=== PATIENT | male | born 1955 | race African-American/Black ===

== ENCOUNTER 2018-08-13 15:39 | Observation (INO) ==
--- NOTE | 2018-08-13 17:44 | ED ---
HPI General Chief Complaint: Chest Pain Stated Complaint: chest pain Time Seen by Provider: 08/13/18 17:18 Source: patient Mode of arrival: ambulatory Limitations: no limitations History of Present Illness HPI narrative: 62-year-old male with history of nonischemic cardiomyopathy with EF 20%, atrial fibrillation, history of PE, CHF, Bipolar disorder, asthma presents to the emergency department for evaluation of chest pain that started last night. Patient says that he had pain near his "left titty" last night while he was at home. He described it as "sticky pain". Says he took 81 mg aspirin and Aleve and the pain resolved. He denies associated shortness of breath, nausea, vomiting or diarrhea. He says that he has not followed up with auto rental clerk in 3 months because he was released from skilled nursing 3 months ago. He says he last saw a auto rental clerk in [place] in October 2017 where he had a stress test and echocardiogram. He does not know the results of this. He says he has been compliant with his Coumadin which was checked 3 months ago. He comes in today B is concerned about the chest pain that he had last night. He says that he is on oxygen 24 hours a day 2 L a minute. MD complaint: Reports chest pain Onset (ago): hour(s) Duration: improved Onset: during rest Pain location: Reports left chest Severity: moderate Pain radiation: Reports none Relieving factors: medication-other Exacerbating factors: nothing Related Data Home Medications Medication Instructions Recorded Confirmed Klkinsey-Con Sprinkle 10 meq PO DAILY 08/13/18 08/13/18 Lasix 20 mg PO DAILY 08/13/18 08/13/18 albuterol sulfate 2.5 mg INHALATION Q4H PRN 08/13/18 08/13/18 albuterol sulfate [ProAir HFA] 2 puff INHALATION Q6H PRN 08/13/18 08/13/18 apixaban [Eliquis] 5 mg PO BID 08/13/18 08/13/18 aspirin 81 mg PO DAILY 08/13/18 08/13/18 carvedilol 6.25 mg PO BID 08/13/18 08/13/18 cetirizine 10 mg PO DAILY 08/13/18 08/13/18 citalopram 20 mg PO DAILY 08/13/18 08/13/18 digoxin 0.125 mg PO DAILY 08/13/18 08/13/18 fluticasone-salmeterol [Advair 250 mg INHALATION 08/13/18 Diskus] hydrocodone-acetaminophen 1 tab PO Q4H 08/13/18 08/13/18 hydroxyzine HCl 50 mg PO TID-QID PRN 08/13/18 08/13/18 levofloxacin 500 mg PO DAILY 08/13/18 08/13/18 levothyroxine 50 mcg PO DAILY 08/13/18 08/13/18 perphenazine 16 mg PO HS 08/13/18 08/13/18 simvastatin 5 mg PO QPM 08/13/18 08/13/18 Allergies Allergy/AdvReac Type Severity Reaction Status Date / Time penicillin G Allergy Severe Edema, Verified 08/13/18 18:03 Generalized Review of Systems ROS: all other systems reviewed are negative [facility] Medical History Medical History CHF (congestive heart failure) (Acute) Cardiac defibrillator in place (Acute) Chronic back pain (Acute) Hypertension (Acute) Myocardial infarction acute (Acute) Pacemaker (Acute) Stroke (Acute) Social History Social History Smoking Status: Never smoker How Often Do You Have a Drink Containing Alcohol: 2 to 3 times a week Recent Travel in [facility] within the Last 8 Weeks: No Recent Out of Country Travel within the Last 8 Weeks: No Exam Narrative Exam Narrative: GENERAL: Well-developed, well-nourished, poorly articulate SKIN: Focused skin assessment warm/dry. HEAD: Atraumatic. Normocephalic. EYES: Pupils equal and round. No scleral icterus. No injection or drainage. ENT: No nasal bleeding or discharge. Mucous membranes pink and moist. NECK: Trachea midline. No JVD. No lymphadenopathy CARDIOVASCULAR: Regular rate and rhythm. No murmur appreciated. RESPIRATORY: No accessory muscle use. Clear to auscultation. Breath sounds equal bilaterally. GASTROINTESTINAL: Abdomen soft, non-tender, nondistended. Hepatic and splenic margins not palpable. MUSCULOSKELETAL: No obvious deformities. No clubbing. No cyanosis. No edema. No tenderness to palpation of the calves NEUROLOGICAL: Awake and alert. No obvious cranial nerve deficits. Motor grossly within normal limits. Normal speech. PSYCHIATRIC: Appropriate mood and affect; insight and judgment normal. Course Initial Documented Vital Signs Temperature 98.2 F 08/13/18 15:54 Pulse Rate 88 08/13/18 15:54 Respiratory Rate 22 08/13/18 15:54 Blood Pressure 135/83 08/13/18 15:54 Pulse Oximetry 95 08/13/18 15:54 Last Documented Vital Signs Temperature 98.2 F 08/13/18 15:54 Pulse Rate 88 08/13/18 15:54 Respiratory Rate 22 08/13/18 15:54 Blood Pressure 135/83 08/13/18 15:54 Pulse Oximetry 95 08/13/18 18:20 Medical Decision Making GREGORY Attestation GREGORY supervised visit: Yes Attestation: I, Dr. Nickerson, have reviewed the advance practice practitioner's documentation and am in agreement, met with the patient face to face, made the diagnosis, and the medical decision making was done by me. *My assessment and Findings: Patient is a 62-year-old male with history of ischemic cardiomyopathy, hypertension, presents the emergency room with complaints of chest pain. Patient reports that he had 2 episodes, one episode last night while he was watching TV and eating chicken strips and another today when he was at the [employer]. Patient reports that chest pain is sharp and stabbing in nature, reports that is located his left chest, patient is concerned as he has heart disease and does not have follow-up. Patient reports that he was supposed to follow-up with auto rental clerk on [facility], reports that he was placed in skilled nursing for a month and now his auto rental clerk will not follow-up with him. Patient currently chest pain-free. Plan for cardiac workup and observation to the chest pain unit MDM Narrative Medical decision making narrative: 62-year-old male, poor historian and poorly articulate presents to the emergency department for evaluation of chest pain that he had last night and today. He says that he took a baby aspirin and Aleve and his chest pain resolved. He denies shortness of breath associated with his chest pain. He does not currently have a urologist and states he has not seen a auto rental clerk in 3 months. He states compliance with his medication to include warfarin. Vital signs are stable. EKG shows sinus rhythm rate 80 without STEMI changes. INR 1.0, inconsistent with patient's history. Patient likely has been noncompliant with his medication. Troponin less than 0.02, BUN/creatinine 25/1.36 (stable from 2015). Based off a history and physical, I believe that patient warrants admission to the chest pain center for evaluation. He states he does not know the results of his last echocardiogram and stress test. He also does not have a auto rental clerk. Medical Screen Exam Complete: Yes Emergency Medical Condition: Yes Differential Diagnosis Differential Diagnosis: Angina, ACS, costochondritis, CHF exacerbation Lab Data Result diagrams: 08/13/18 17:43 08/13/18 17:43 Lab Results 08/13/18 08/13/18 08/13/18 Range/Units 17:43 17:43 17:43 WBC 5.0 (4.0-11.0) th/mm3 RBC 4.20 L (4.50-5.90) mil/mm3 Hgb 13.5 (13.0-17.0) gm/dL Hct 38.6 L (39.0-51.0) % MCV 91.8 (80.0-100.0) fL MCH 32.0 (27.0-34.0) pg MCHC 34.9 (32.0-36.0) % RDW 15.2 (11.6-17.2) % Plt Count 224 (150-450) th/mm3 MPV 7.4 (7.0-11.0) fL Neut % (Auto) 57.7 (16.0-70.0) % Lymph % (Auto) 27.9 (9.0-44.0) % [place] % (Auto) 10.4 H (0.0-8.0) % Eos % (Auto) 3.5 (0.0-4.0) % Baso % (Auto) 0.5 (0.0-2.0) % Neut # (Auto) 2.9 (1.8-7.7) th/mm3 Lymph # (Auto) 1.4 (1.0-4.8) th/mm3 [place] # (Auto) 0.5 (0.0-0.9) th/mm3 Eos # (Auto) 0.2 (0.0-0.4) th/mm3 Baso # (Auto) 0.0 (0.0-0.2) th/mm3 WBC Differential . Differential Comment Auto diff final PT 10.5 (9.8-11.6) sec INR 1.0 Ratio APTT 24.7 (24.3-30.1) sec Sodium 138 (136-145) meq/L Potassium 4.6 (3.5-5.1) meq/L Chloride 104 (98-107) meq/L Carbon Dioxide 30.6 (21.0-32.0) meq/L Anion Gap 3 L (5-15) meq/L BUN 25 H (7-18) mg/dL Creatinine 1.36 H (0.60-1.30) mg/dL Estimated GFR 64 L (>89) mL/min Random Glucose 83 (74-106) mg/dL Calcium 8.4 L (8.5-10.1) mg/dL Magnesium 2.2 (1.5-2.5) mg/dL Total Bilirubin 0.3 (0.2-1.0) mg/dL AST 17 (15-37) U/L ALT 18 (12-78) U/L Alkaline Phosphatase 89 (45-117) U/L Troponin I Less than 0.02 L (0.02-0.05) ng/mL Total Protein 7.8 (6.4-8.2) g/dL Albumin 3.4 (3.4-5.0) g/dL Urine Color (Yellw/Straw) Urine Clarity (Clear) Urine pH (5.0-8.5) Ur Specific [place] (1.002-1.035) Urine Protein (Neg-Trace) mg/dL Urine Glucose (UA) (Negative) mg/dL Urine Ketones (Negative) mg/dL Urine Occult Blood (Negative) Urine Nitrate (Negative) Urine Bilirubin (Negative) Urine Urobilinogen (Less than 2) mg/dL Ur Leukocyte Esterase (Negative) Urine RBC (0-3) /hpf Urine WBC (0-5) /hpf Urine Mucus (Occasional) /lpf Micro UA Comment Ur Microscopic Review Urine Culture Comments 08/13/18 Range/Units 18:18 WBC (4.0-11.0) th/mm3 RBC (4.50-5.90) mil/mm3 Hgb (13.0-17.0) gm/dL Hct (39.0-51.0) % MCV (80.0-100.0) fL MCH (27.0-34.0) pg MCHC (32.0-36.0) % RDW (11.6-17.2) % Plt Count (150-450) th/mm3 MPV (7.0-11.0) fL Neut % (Auto) (16.0-70.0) % Lymph % (Auto) (9.0-44.0) % [place] % (Auto) (0.0-8.0) % Eos % (Auto) (0.0-4.0) % Baso % (Auto) (0.0-2.0) % Neut # (Auto) (1.8-7.7) th/mm3 Lymph # (Auto) (1.0-4.8) th/mm3 [place] # (Auto) (0.0-0.9) th/mm3 Eos # (Auto) (0.0-0.4) th/mm3 Baso # (Auto) (0.0-0.2) th/mm3 WBC Differential Differential Comment PT (9.8-11.6) sec INR Ratio APTT (24.3-30.1) sec Sodium (136-145) meq/L Potassium (3.5-5.1) meq/L Chloride (98-107) meq/L Carbon Dioxide (21.0-32.0) meq/L Anion Gap (5-15) meq/L BUN (7-18) mg/dL Creatinine (0.60-1.30) mg/dL Estimated GFR (>89) mL/min Random Glucose (74-106) mg/dL Calcium (8.5-10.1) mg/dL Magnesium (1.5-2.5) mg/dL Total Bilirubin (0.2-1.0) mg/dL AST (15-37) U/L ALT (12-78) U/L Alkaline Phosphatase (45-117) U/L Troponin I (0.02-0.05) ng/mL Total Protein (6.4-8.2) g/dL Albumin (3.4-5.0) g/dL Urine Color Yellow (Yellw/Straw) Urine Clarity Clear (Clear) Urine pH 6.0 (5.0-8.5) Ur Specific [place] 1.020 (1.002-1.035) Urine Protein Negative (Neg-Trace) mg/dL Urine Glucose (UA) Negative (Negative) mg/dL Urine Ketones Negative (Negative) mg/dL Urine Occult Blood Negative (Negative) Urine Nitrate Negative (Negative) Urine Bilirubin Negative (Negative) Urine Urobilinogen 4 or greater (Less than 2) mg/dL Ur Leukocyte Esterase Negative (Negative) Urine RBC Less than 1 (0-3) /hpf Urine WBC Less than 1 (0-5) /hpf Urine Mucus Few H (Occasional) /lpf Micro UA Comment Culture not ind Ur Microscopic Review Not Reportable Urine Culture Comments Culture not ind Imaging Data Radiologist's impression: Chest X-Ray 08/13/18 17:31 CONCLUSION: Hypoinflation with no acute cardiopulmonary process. Discharge Plan Discharge Disposition Patient Disposition: 30 Still Patient Discharge Condition Condition: Stable Discharge Details Diagnosis: Atypical chest pain Physicians Team ED Provider: Olivia Nickerson ED Midlevel Provider: Barbara Guillory Primary Care Provider: Mehran Farr Attending Provider: Robert Del Rosario Status ED Status: Admitted Observation Patient
[2018-08-13 18:01] LABS: Baso % (Auto) 0.5 % (0.0-2.0); Eos # (Auto) 0.2 th/mm3 (0.0-0.4); Eos % (Auto) 3.5 % (0.0-4.0); Hematocrit 38.6 % (39.0-51.0); Hemoglobin 13.5 gm/dL (13.0-17.0); Lymph # (Auto) 1.4 th/mm3 (1.0-4.8); Lymph % (Auto) 27.9 % (9.0-44.0); Mean Corpuscular HGB Conc 34.9 % (32.0-36.0); Mean Corpuscular Volume 91.8 fL (80.0-100.0); Mean Platelet Volume 7.4 fL (7.0-11.0); Mono # (Auto) 0.5 th/mm3 (0.0-0.9); Mono % (Auto) 10.4 % (0.0-8.0); Neut # (Auto) 2.9 th/mm3 (1.8-7.7); Neut % (Auto) 57.7 % (16.0-70.0); Platelet Count 224 th/mm3 (150-450); Red Cell Distribution Width 15.2 % (11.6-17.2)
--- NOTE | 2018-08-13 18:15 | XR ---
EXAM DATE: 08/13/2018 5:31 PM EDT AGE/SEX: 62 years / Male INDICATIONS: Chest pain. CLINICAL DATA: This is the patient's initial encounter. Patient reports that signs and symptoms have been present for 2 days and indicates a pain score of 7/10. MEDICAL/SURGICAL HISTORY: None. Pacemaker. [place] [facility] [place]. . FINDINGS: A single AP view of the chest demonstrates the lungs to be symmetrically hypoinflated with no acute i nfiltrate. Heart size is prominent but well compensated. Interval placement of a left subclavian unip olar pacer. Osseous structures are intact. CONCLUSION: Hypoinflation with no acute cardiopulmonary process. Electronically signed by: Fito Ortega MD 08/13/2018 6:14 PM EDT
[2018-08-13 18:18] LABS: Activated Partial Thrombo Time 24.7 sec (24.3-30.1); Prothrombin Time 10.5 sec (9.8-11.6)
[2018-08-13 18:32] LABS: Alkaline Phosphatase 89 U/L (45-117); Total Protein 7.8 g/dL (6.4-8.2)
[2018-08-13 18:43] LABS: Alanine Aminotransferase 18 U/L (12-78); Albumin 3.4 g/dL (3.4-5.0); Anion Gap 3 meq/L (5-15); Aspartate Aminotransferase 17 U/L (15-37); Blood Urea Nitrogen 25 mg/dL (7-18); Calcium 8.4 mg/dL (8.5-10.1); Carbon Dioxide 30.6 meq/L (21.0-32.0); Chloride 104 meq/L (98-107); Glomerular Filtration Rate 64 mL/min (>89); Glucose,Random 83 mg/dL (74-106); Magnesium 2.2 mg/dL (1.5-2.5); Potassium 4.6 meq/L (3.5-5.1); Sodium 138 meq/L (136-145)
[2018-08-13 18:52] LABS: Bilirubin,Urine Negative (Negative); Clarity,Urine Clear (Clear); Color,Urine Yellow (Yellw/Straw); Glucose,Urine (UA) Negative (Negative); Leukocyte Esterase,Urine Negative (Negative); Mucus,Urine Few /lpf (Occasional); Nitrite,Urine Negative (Negative); Urobilinogen,Urine 4 or Greater mg/dL (Less than 2)
[2018-08-13] MEDS ORDERED: Acetaminophen 500 MG Tablet PO PRN (19:07)
[2018-08-13 21:27] LABS: Creatine Kinase 149 U/L (39-308)
--- NOTE | 2018-08-14 08:01 | P.HPCA ---
History of Present Illness Primary Care Physician: Mehran Farr MD Chief Complaint: Chest pain History of Present Illness: 62-year-old male with history of cardiomyopathy, defibrillator, congestive heart failure, atrial fibrillation, and COPD presents emergency room for further evaluation of chest pain. Onset 2 nights ago. Nonexertional. Occurred while watching TV. Location left inframammary area. Characterizes sharp. No radiation. Duration 2-3 minutes. No associated symptoms of nausea, vomiting, worsening dyspnea (chronic dyspnea), or diaphoresis. Mild in severity. No precipitating or relieving factors. Denies similar pain in the past. Discomfort has not returned. 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 Reports being discharged from Dr. Carr's office due to "missing too many appointments." Reports defibrillator placed 2017 after [facility] fired, sending him to ER. States defibrillator placed at [facility]. States in May 2017 he "flat lined" and required some type of emergency surgery. Surgery unknown but denies ever requiring or completing a cardiac catheterization completed. However states "I never needed any stents." Reports unremarkable nuclear test 3 months ago and an echocardiogram early this year. Patient is a poor historian. Denies recent illness, fever, cough, change in weight, edema, or worsening dyspnea. Past cardiac testing Per [place] records most recent Lexiscan completed 06/14/15-Conclusions: Global hypokinesis more prominent in the septum with an EF diminished at 21% and left ventricular dilatation. Findings consistent with mild cardiomyopathy and not significantly changed relative to prior study 11/2013. 06/14/1547-[id number]-Tmzjuct-left ventricle: The cavity size was dilated. Wall thickness was normal. Systolic function was severely reduced by visual assessment. The estimated ejection fraction was in the range of 10-20%. Diffuse hypokinesis. Mitral valve: Mild to moderate regurgitation. Left atrium: The atrium was moderately dilated. Right ventricle: The cavity size was mildly dilated. Wall thickness was normal. Right atrium: The atrium was moderately to severe dilated. Pulmonary arteries: PA peak pressure: 35 mm Hg. Unclear if cardiomyopathy truly nonischemic as not cardiac cath reports available and he is a poor historian. Last seen [place] May 2015-discharged home with [facility]. Reports after discharge Dr. Barrow referred hospice. Reports hospice came to his house but he "kicked them out and my heart improved over time." Mentions cardiac testing completed in [place], however cannot recall events, dates, or testing completed. Social history Known decreased EF and hyperlipidemia. No known hypertension, diabetes, or CAD. Lifelong nonsmoker. Endorses past "heavy drinking." Occasionally will drink 1 shot of liquor, last drank 2 weeks ago. No recreational drug use. Single, lives with girlfriend. Home O2 as needed. Ambulates with a walker. Family history Noncontributory for early onset cardiovascular disease. Mother CABG age 63. - Diagnosis (1) Atypical chest pain (2) Cardiomyopathy (3) Renal insufficiency Review of Systems All other systems reviewed negative except as stated in HPI PMFSH - History History Provided By: Patient - Medical History Medical History: Medical History (Last Updated 08/14/18 @ 09:33 by NOHEMY Mathur) Afib Asthma Bipolar 1 disorder CHF (congestive heart failure) CKD (chronic kidney disease) COPD (chronic obstructive pulmonary disease) Cardiac defibrillator in place Chronic back pain Decreased cardiac ejection fraction Hypertension On home oxygen therapy Pulmonary embolism Stroke - Family History Family History: Family History (Last Updated 08/14/18 @ 09:31 by NOHEMY Mathur) Mother Hx of CABG Myocardial infarct - Social History I have reviewed the patient's Social History: Yes - Tobacco History Second Hand Smoke Exposure: No Tobacco Use In Past 30 Days: No Smoking Status: Never smoker - Alcohol History How Often Do You Have a Drink Containing Alcohol: Monthly or less - Substance Use History Substance History: No History of Abuse - Travel History Recent Travel in the [place] Within the Last 8 Weeks: No Recent Travel Out of the Country Within the Last 8 Weeks: No - Immunization History Tetanus Immunization: <5 Years Medications and Allergies Active Medications: Active Medications Acetaminophen (Tylenol) 500 mg PO Q4H PRN PRN Reason: HEADACHE Ondansetron HCl (Zofran Inj) 4 mg IV.PUSH Q6H PRN PRN Reason: NAUSEA Sodium Chloride (Ns Flush) 2 ml IV.FLUSH UNSCH PRN PRN Reason: FLUSH AFTER USING IV ACCESS Sodium Chloride (Ns Flush) 2 ml IV.FLUSH BID JULIA Last Admin: 08/13/18 23:27 Dose: 2 ml Sodium Chloride (Ns Flush) 2 ml IV.FLUSH PRN PRN PRN Reason: FLUSH AFTER USING IV ACCESS Allergies Allergy/AdvReac Type Severity Reaction Status Date / Time penicillin G Allergy Severe Edema, Verified 08/13/18 18:03 Generalized Home Medications Medication Instructions Recorded Confirmed Type Klor-Con Sprinkle 10 meq PO DAILY 08/13/18 08/13/18 History Lasix 20 mg PO DAILY 08/13/18 08/13/18 History albuterol sulfate 2.5 mg INHALATION Q4H PRN 08/13/18 08/13/18 History albuterol sulfate [ProAir HFA] 2 puff INHALATION Q6H PRN 08/13/18 08/13/18 History apixaban [Eliquis] 5 mg PO BID 08/13/18 08/13/18 History aspirin 81 mg PO DAILY 08/13/18 08/13/18 History carvedilol 6.25 mg PO BID 08/13/18 08/13/18 History cetirizine 10 mg PO DAILY 08/13/18 08/13/18 History citalopram 20 mg PO DAILY 08/13/18 08/13/18 History digoxin 0.125 mg PO DAILY 08/13/18 08/13/18 History fluticasone-salmeterol [Advair 250 mg INHALATION BID 08/13/18 08/14/18 History Diskus] hydrocodone-acetaminophen 1 tab PO Q4H 08/13/18 08/13/18 History hydroxyzine HCl 50 mg PO TID-QID PRN 08/13/18 08/13/18 History levofloxacin 500 mg PO DAILY 08/13/18 08/13/18 History levothyroxine 50 mcg PO DAILY 08/13/18 08/13/18 History perphenazine 16 mg PO HS 08/13/18 08/13/18 History simvastatin 5 mg PO QPM 08/13/18 08/13/18 History Exam Vital signs: Vital Signs 08/13/18 15:54 08/13/18 18:20 08/13/18 20:30 Temperature 98.2 F Pulse Rate 88 81 Respiratory Rate 22 21 Blood Pressure 135/83 119/88 Pulse Oximetry 95 95 100 08/13/18 23:56 08/14/18 04:00 08/14/18 05:45 Temperature 97.5 F L 97.7 F Pulse Rate 82 80 80 Respiratory Rate 19 20 Blood Pressure 121/73 113/80 Pulse Oximetry 98 98 Intake & Output 08/13/18 08/14/18 08/14/18 18:59 06:59 18:59 Weight 185 kg 103.3 kg Other: Date of Last Bowel Movement 08/13/18 Narrative: GENERAL: Alert WN, WD, NAD, pleasant, poor historian, -Angolan male HEAD: NC, AT EYES: Sclera clear, conjunctiva without injection, pupils equal and round, bilateral cataracts ENT: Mucous membranes pink and moist NECK: Supple, no masses, trachea midline CV: RRR, without murmur, rub, gallop, no JVD, S1-S2. No carotid bruits. Chest wall nontender to palpation RESP: Clear lungs throughout bilateral, no crackles, wheeze, rhonchi, symmetrical chest rise, nonlabored, able to speak in full sentences ABD: Soft, NT, ND, no masses, positive bowel tones EXT: Pulses +1x4, no dependent edema MS: Normal tone x4 extremities, nontender, no obvious deformities, full range of motion NEURO: CN II through CN XII grossly intact, motor strength 5/5 PSYCH: A+O x3, pleasant affect, appropriate speech, mood, questionable insight and judgment SKIN: Normal turgor, normal texture, no lesions, no rashes Results 08/13/18 17:43 08/13/18 17:43 Cardiac Enzymes 08/13/18 08/13/18 Range/Units 17:43 20:45 AST 17 (15-37) U/L Troponin I Less than 0.02 L Less than 0.02 L (0.02-0.05) ng/mL Coagulation 08/13/18 Range/Units 17:43 PT 10.5 (9.8-11.6) sec APTT 24.7 (24.3-30.1) sec CBC 08/13/18 Range/Units 17:43 WBC 5.0 (4.0-11.0) th/mm3 RBC 4.20 L (4.50-5.90) mil/mm3 Hgb 13.5 (13.0-17.0) gm/dL Hct 38.6 L (39.0-51.0) % Plt Count 224 (150-450) th/mm3 Neut # (Auto) 2.9 (1.8-7.7) th/mm3 Lymph # (Auto) 1.4 (1.0-4.8) th/mm3 [place] # (Auto) 0.5 (0.0-0.9) th/mm3 Eos # (Auto) 0.2 (0.0-0.4) th/mm3 Baso # (Auto) 0.0 (0.0-0.2) th/mm3 Comprehensive Metabolic Panel 08/13/18 Range/Units 17:43 Sodium 138 (136-145) meq/L Potassium 4.6 (3.5-5.1) meq/L Chloride 104 (98-107) meq/L Carbon Dioxide 30.6 (21.0-32.0) meq/L BUN 25 H (7-18) mg/dL Creatinine 1.36 H (0.60-1.30) mg/dL Calcium 8.4 L (8.5-10.1) mg/dL AST 17 (15-37) U/L ALT 18 (12-78) U/L Alkaline Phosphatase 89 (45-117) U/L Total Protein 7.8 (6.4-8.2) g/dL Albumin 3.4 (3.4-5.0) g/dL Intake and Output 08/13/18 08/14/18 08/14/18 22:59 06:59 14:59 Other: Date of Last Bowel Movement 08/13/18 Weight 185 kg 103.3 kg - Imaging and Cardiology Imaging: Impressions Chest X-Ray 08/13/18 17:31 CONCLUSION: Hypoinflation with no acute cardiopulmonary process. EKG interpretations - EKG EKG results cardiology: sinus rhythm (Normal sinus rhythm, left axis deviation, T wave inversions v5-v6) Caprini VTE Risk Assessment Caprini VTE Risk Assessment: Moderate/High Risk (score >= 2) Caprini Risk Assessment Model: Point Value = 1 Point Value = 2 Point Value = 3 Point Value = 5 Age 41-60 Minor surgery BMI > 25 kg/m2 Swollen legs Varicose veins or History of unexplained or recurrent spontaneous Oral contraceptives or hormone replacement Sepsis (< 1 month) Serious lung disease, including pneumonia (< 1 month) Abnormal pulmonary function Acute myocardial infarction Congestive heart failure (< 1 month) History of inflammatory bowel disease Medical patient at bed rest Age 61-74 Arthroscopic surgery Major open surgery (> 45 min) Laparoscopic surgery (> 45 min) Malignancy Confined to bed (> 72 hours) Immobilizing plaster cast Central venous access Age >= 75 History of VTE Family history of VTE Factor V Leiden Prothrombin [id number] Lupus anticoagulant Anticardiolipin antibodies Elevated serum homocysteine Heparin-induced thrombocytopenia Other congenital or acquired thrombophilia Stroke (< 1 month) Elective arthroplasty Hip, pelvis, or leg fracture Acute spinal cord injury (< 1 month) Prophylaxis Regimen: Total Risk Factor Score Risk Level Prophylaxis Regimen 0-1 Low Early ambulation 2 Moderate Order ONE of the following: *Sequential Compression Device (SCD) *Heparin 5000 units SQ BID 3-4 Higher Order ONE of the following medications: *Heparin 5000 units SQ TID *Enoxaparin/Lovenox 40 mg SQ daily (WT < 150 kg, CrCl > 30 mL/min) *Enoxaparin/Lovenox 30 mg SQ daily (WT < 150 kg, CrCl > 10-29 mL/min) *Enoxaparin/Lovenox 30 mg SQ BID (WT < 150 kg, CrCl > 30 mL/min) AND/OR *Sequential Compression Device (SCD) 5 or more Highest Order ONE of the following medications: *Heparin 5000 units SQ TID (Preferred with Epidurals) *Enoxaparin/Lovenox 40 mg SQ daily (WT < 150 kg, CrCl > 30 mL/min) *Enoxaparin/Lovenox 30 mg SQ daily (WT < 150 kg, CrCl > 10-29 mL/min) *Enoxaparin/Lovenox 30 mg SQ BID (WT < 150 kg, CrCl > 30 mL/min) AND *Sequential Compression Device (SCD) Assessment and Plan - Assessment (1) Atypical chest pain Code(s): R07.89 - Other chest pain Status: Acute Plan: Admitted to chest pain center. Monitor on telemetry overnight. ACS ruled out with 2 sets of EKGs and cardiac enzymes. Seen evaluated by Dr. Robert Del Rosario. Attempt to obtain medical records. Dr. Del Rosario called Dr. Carr's, Dr. Carr will have office call back to further assist. Likely no further cardiac testing if recent cardiac testing completed and/or cardiac catheterization reports available. 0845-return call from Dr. Carr's office received. No recent records of cardiac nuclear testing since 2016. Last seen at [facility] 2016 , no cardiac catheterization completed during that time. No past cardiac catheterizations ever recorded at [facility]. Discussed above with Dr. Del Rosario. Proceed with [place]. Discussed plan of care with patient, agreeable to plan of care. RN updated with plan of care. (2) Cardiomyopathy Code(s): I42.9 - Cardiomyopathy, unspecified Status: Chronic Plan: Unclear if cardiomyopathy nonischemic. Continue home medications as previously instructed. Strongly encouraged establishing with a weaving professor for routine device checks and follow up. (3) Renal insufficiency Code(s): N28.9 - Disorder of kidney and ureter, unspecified Status: Chronic Plan: Chronic, improved from past labs. Follow up with primary care provider. H&P: Quality - VTE Deep Vein Thrombosis/Pulmonary Embolism Present on Admission: No (2) Cardiomyopathy Qualifiers: Cardiomyopathy type: unspecified Qualified Code(s): I42.9 - Cardiomyopathy, unspecified
[2018-08-14] MEDS ORDERED: Levothyroxine 50 MCG Tablet PO SCH (08:45)
[2018-08-14] MEDS ORDERED: Digoxin 125 MCG Tablet PO SCH (09:00)
[2018-08-14] MEDS ORDERED: Furosemide 20 MG Tablet PO SCH (09:00)
[2018-08-14] MEDS ORDERED: Citalopram 20 MG Tablet PO SCH (09:00)
[2018-08-14] MEDS ORDERED: Budesonide-Formoterol 160/4.5 MCG 6 GM Inhaler INH SCH (09:00)
[2018-08-14] MEDS ORDERED: Carvedilol 6.25 MG Tablet PO SCH (09:00)
[2018-08-14] MEDS ORDERED: Regadenoson Inj 0.4 MG/5 ML Syringe IV.PUSH ONE (10:25)
--- NOTE | 2018-08-14 12:01 | NM ---
EXAM DATE: 08/14/2018 11:44 AM EDT AGE/SEX: 62 years / Male INDICATIONS:Angina. . Left sided chest pain for one day. CLINICAL DATA: This is the patient's initial encounter. Patient reports that signs and symptoms have been present for 1 day and indicates a pain score of 5/10. MEDICAL/SURGICAL HISTORY: Myocardial infarction. Congestive heart failure. Hypertension. Pace maker. COMPARISON: [facility] [place] MYOCARDIAL PERF PHARM SPECT, 06/14/2015. . No external comparison. DOSE: 11.0 mCi Tc 99m Myoview at rest 32.0 mCi [id number] at stress 0.4 mg Lexiscan STRESS SYMPTOMS: Shortness of breath and flushing. EJECTION FRACTION: 22 % TECHNIQUE: The patient underwent pharmacologic stress with infusion of prescribed dose. Continuous ECG tracing was monitored during stress. Gated SPECT imaging was performed after stress and conventi onal SPECT imaging was performed at rest. The examination was performed on a SPECT/CT scanner, both attenuation and non-corrected datasets were reviewed. FINDINGS: Distribution: The maximum perfused segment at stress is in the anterolateral wall. Perfusion Study: Focal fixed defect in the mid inferior wall. Reversible defect in the mid to infer ior anterior wall. Gated Study: Globally severe hypokinesia with dilated ventricle. The ejection fraction is calculate d at 22%. RISK CATEGORY: High (>3% Annual Morality Rate) CONCLUSION: 1. Small region of stress-induced ischemia in the mid to inferior anterior wall 2. Dilated left ventricle with global severe hypokinesia and reduced EF of 22%. Electronically signed by: Marshall Morris MD 08/14/2018 11:59 AM EDT
[2018-08-14 12:38] VITALS: BP 149/94; PULSE 89; RESP 20; TEMP 97.6; O2SAT 96
--- NOTE | 2018-08-15 08:31 | ECG ---
Date Performed: 08/13/2018 Time Performed: 20:49:38 PTAGE: 62 years EKG: Sinus rhythm WITH FIRST DEGREE AV BLOCK MODERATE T-WAVE ABNORMALITY, CONSIDER LATERAL ISCHEMIA ABNORMAL ECG PREVIOUS TRACING : 08/13/2018 17.40 Since previous tracing, no significant change noted DOCTOR: Robert Del Rosario Interpretating Date/Time 08/15/2018 08:30:30
--- NOTE | 2018-08-15 08:32 | ECG ---
Date Performed: 08/13/2018 Time Performed: 17:40:40 PTAGE: 62 years EKG: Sinus rhythm WITH FIRST DEGREE AV BLOCK MODERATE T-WAVE ABNORMALITY, CONSIDER LATERAL ISCHEMIA ABNORMAL ECG PREVIOUS TRACING : 06/07/2015 19.31 Since previous tracing, no significant change noted DOCTOR: Robert Del Rosario Interpretating Date/Time 08/19/2018 13:25:29
--- NOTE | 2018-08-15 08:32 | ECG ---
Date Performed: 08/13/2018 Time Performed: 16:03:29 PTAGE: 62 years EKG: Sinus rhythm WITH FIRST DEGREE AV BLOCK MODERATE T-WAVE ABNORMALITY, CONSIDER LATERAL ISCHEMIA ABNORMAL ECG INTER PRETATION BASED ON A DEFAULT AGE OF 40 YEARS NO PREVIOUS TRACING DOCTOR: Robert Del Rosario Interpretating Date/Time 08/15/2018 08:32:09
--- NOTE | 2018-08-15 08:33 | TR ---
Date Performed: 08/14/2018 Time Performed: 10:39:25 DOCTOR: Robert Del Rosario DRUG LIST: CLINICAL HISTORY: REASON FOR TEST: REASON FOR ENDING: OBSERVATION: CONCLUSION: COMMENTS: Lexiscan stress test was performed under standard four minute protocol. Radionuclide was injected one minute prior to ending the test. No electrocardiographic abormalities were present t o suggest ischemia. Nuclear imaging and interpretation are pending.
== END 2018-08-14 13:41 | disposition home or self-care (01) ==
LOC: NEDA 15:39 → NEPC 15:39 → NEPHCDU 21:24 → NEDH 08-14 10:30
PROVIDERS: ADMIT Internal Medicine Cardiovascular Disease; ATTEND Internal Medicine Cardiovascular Disease